=== PATIENT | male | born 1965 | race Two or more races ===

== ENCOUNTER 2019-02-28 15:41 | Inpatient (IN) | payer OTHER ==
[~2019-02-28] VITALS: Ht 172.7 cm; Wt 86.2 kg
[2019-04-03] MEDS ORDERED: COZAAR50 MG PO (08:34)
== END 2019-04-11 13:58 | disposition home or self-care (01) | DRG 708 ==
LOC: EDUNIT# 04-03 07:00 → O/R 04-09 05:41 → SURH 04-09 05:41
PROVIDERS: ADMIT Urology
PROC: 07TC0ZZ Resection of Pelvis Lymphatic, Open Approach (ICD-10-PCS; 2019-04-09)
PROC: 0VT00ZZ Resection of Prostate, Open Approach (ICD-10-PCS; principal; 2019-04-09 07:00)
DX: C61 Malignant neoplasm of prostate (principal); R59.0 Localized enlarged lymph nodes; I10 Essential (primary) hypertension

== ENCOUNTER → 2019-03-16 | Outpatient (CLI) | payer OTHER | END | disposition home or self-care (01) | LOC: NUCLEAR 07:30 | DX: I25.10 Atherosclerotic heart disease of native coronary artery without angina pectoris (principal) ==